=== PATIENT | male | born 1990 | race American Indian/Alaskan Native ===

== ENCOUNTER 2017-04-26 22:51 | Emergency (ER) | payer OTHER ==
[2017-04-26 23:33] VITALS: BP 113/59
[2017-04-26] MEDS ORDERED: MOTRIN PO ONE (23:35)
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
== END 2017-04-27 02:41 | disposition home or self-care (01) ==
LOC: ED 22:51
DX: M54.5 Low back pain (principal); M54.2 Cervicalgia; F17.200 Nicotine dependence, unspecified, uncomplicated; F12.10 Cannabis abuse, uncomplicated
CPT/HCPCS: 72040; 72100